=== PATIENT | male | born 1960 | race Caucasian/White ===

== ENCOUNTER 2017-02-27 19:12 | Inpatient (IN) | payer SELFPAY ==
[2017-02-27 18:30] VITALS: BP 129/67; PULSE 82; RESP 18; TEMP 97.7; O2SAT 97
[2017-02-27] MEDS ORDERED: ALUMINUM/MAGNESIUM/SIMETH 30 ML CUP PO PRN (19:30)
[2017-02-27] MEDS ORDERED: ACETAMINOPHEN 325 MG TAB PO PRN (19:30)
[2017-02-27] MEDS ORDERED: hydrOXYzine HCL 50 MG TAB PO PRN (19:30)
[2017-02-27] MEDS ORDERED: BENZTROPINE MESYLATE 1 MG TAB PO PRN (19:30)
[2017-02-27] MEDS ORDERED: MAGNESIUM HYDROXIDE SUSP 30 ML CUP PO PRN (19:30)
[2017-02-27] MEDS ORDERED: diphenhydrAMINE HCL 50 MG CAP - HS PRN PO (19:30)
[2017-02-27] MEDS ORDERED: BENZTROPINE MESYLATE 2 MG/2 ML VIAL IM PRN (19:30)
[2017-02-27] MEDS: REMOVE OLD NICOTINE PATCH T-DERMAL SCH (21:00)
[2017-02-28 05:06] VITALS: BP 106/57; PULSE 63; RESP 18; TEMP 98.1; O2SAT 100
[2017-02-28 08:59] LABS: ANION GAP 5 MEQ/L (5-15); BICARBONATE 31.1 MEQ/L (21.0-32.0); BLOOD UREA NITROGEN 14 MG/DL (7-18); CHLORIDE 103 MEQ/L (98-107); GLOMERULAR FILTRATION RATE 94 ML/MIN (>89); HDL CHOLESTEROL 81.5 MG/DL (40.0-60.0); LDL CHOLESTEROL 77 MG/DL (0-99); POTASSIUM 4.4 MEQ/L (3.5-5.1); SODIUM (NA) 139 MEQ/L (136-145)
[2017-02-28] MEDS: NICOTINE 21 MG/24 HR PATCH T-DERMAL SCH (09:00)
--- NOTE | 2017-02-28 14:33 | HHI.HP ---
Provisional Diagnosis Admission Date Feb 27, 2017 at 19:12 [place]. Adjustment disorder with mixed disturbance of emotions and conduct. Certification of Person's Competence To Provide Express and Informed Consent I have personally examined Dariusz Vazquez , a person being served at [facility] on, Feb 28, 2017 14:27. Express and informed consent means consent voluntarily given in writing, by a competent person, after sufficient explanation and disclosure of the subject matter involved to enable the person to make a knowing and willful decision without any element of force, fraud, deceit, duress, or other form of constraint or coercion. This person is 18 years of age or older, is not now known to be incompetent to consent to treatment with a guardian advocate, and does not have a health care surrogate or proxy currently making medical treatment decisions. I have found this person to be one of the following: [X] Competent to provide express and informed consent, as defined above, for voluntary admission to this facility and is competent to provide express and informed consent for treatment. He/she has the consistent capacity to make well reasoned, willful, and knowing decisions concerning his or her medical or mental health treatment. The person fully and consistently understands the purpose of the admission for examination/placement and is fully capable of personally exercising all rights [place] Incompetent to provide express and informed consent to voluntary admission, and this is incompetent to provide express and informed consent to treatment. The person must be transferred to involuntary status and a petition for a guardian advocate filed with the Circuit Court. [] Refusing to provide express and informed consent to voluntary admission but is competent to provide express and informed consent for treatment. The person must be discharged or transferred to involuntary status. Form shall be completed within 24 hours of a person's arrival at the receiving facility and filed in the clinical record of each person: 1. Admitted on a voluntary basis 2. Permitted to provide express and informed consent to his/her own treatment 3. Allowed to transfer from involuntary to voluntary status 4. Prior to permitting a person to consent to his or her own treatment after having been previously found incompetent to consent to treatment. History of Present Illness Capacity: Has Capacity HPI Patient has a several month history of depression. This includes depressed mood , anhedonia, diminished energy, insomnia, diminished self-esteem, distractibility and even vague suicidal ideation. He has stopped drinking alcohol and been detoxed in the past days and feels more depressed at this time yet does not wish to consume alcohol. He is also in the midst of a divorce from his and this is a marked stressor in his life. At this time he would like help with his depression and his anxiety. He has been nonfunctional at work and would like to be able to function in that capacity. Review of Systems ROS Limitations: Clinical Condition Past Psych History Psychological trauma history Denied Violence risk - others (6 mos) Minimal Violence risk - self (6 mos) Moderate Substance Abuse History Drugs/Alcohol past 12 months History of alcohol abuse in the last 12 months. Past Family Social History Current Medications Medications (Trade) Dose Ordered Sig/Darryl Route Start Time Stop Time Status Last Admin (Atarax) 50 mg Q6H PRN PO 02/27/17 19:30 (Cogentin) 1 mg Q12H PRN PO 02/27/17 19:30 (Cogentin Inj) 1 mg Q12H PRN IM 02/27/17 19:30 (Benadryl) 50 mg HS PRN PO 02/27/17 19:30 (Tylenol) 650 mg Q4H PRN PO 02/27/17 19:30 (Milk Of Magnesia Liq) 30 ml DAILY PRN PO 02/27/17 19:30 (Mag-Al Plus Susp Liq) 30 ml Q6H PRN PO 02/27/17 19:30 (Habitrol 21 Mg Patch.24 Hr) 1 patch DAILY T-DERMAL 02/28/17 09:00 Miscellaneous Information 1 HS T-DERMAL 02/27/17 21:00 Family History Positive for mood disorder Social History Does have the support of his mother and sister and other siblings. Does construction work at least intermittently. Becoming from his second . Patient's Strengths (min. 2) Verbal and resilient. Physical Exam GENERAL: SKIN: Warm and dry. HEAD: Normocephalic. EYES: No scleral icterus. No injection or drainage. NECK: Supple, trachea midline. No JVD or lymphadenopathy. CARDIOVASCULAR: Regular rate and rhythm without murmurs, gallops, or rubs. RESPIRATORY: Breath sounds equal bilaterally. No accessory muscle use. GASTROINTESTINAL: Abdomen soft, non-tender, nondistended. MUSCULOSKELETAL: No cyanosis, or edema. BACK: Nontender without obvious deformity. No CVA tenderness. Vital Signs Vital Signs Date Time Temp Pulse Resp B/P Pulse Ox O2 Delivery O2 Flow Rate FiO2 02/28/17 05:06 98.1 63 18 106/57 100 Mental Status Examination Speech: Unremarkable Orientation: x3 Memory: Unremarkable Thought Process: Organized, Goal Directed Thought Content: Unremarkable Hallucination Type: None Attention and Concentration: Good Suicidal Ideation: Yes Previous Suicide Attempts: No Homicidal Ideation: No Previous Homicide Attempts: No Insight: Fair Judgment: Unrealistic Affect: Anxious, Sad Mood: Sad, Anxious Motor Activity: Normal gait Assessment & Plan Problem List: (1) Adjustment disorder with mixed disturbance of emotions and conduct ICD Code: F43.25 Assessment & Plan Estimated LOS: 3 days this physician plans to place the patient on half doses of Prozac and Wellbutrin. This should address his depressive symptoms and any future cravings he might have. He will be engaged in individual and group therapies. We will obtain a comprehensive metabolic profile and EKG to ensure that his antidepressant medicines do not interfere with his cholesterol as he gets older or his heart function as he gets older. We will also test his thyroid function to be sure it is not contributing to his depression and his liver function due to his history of alcohol abuse. These issues may adversely affect his mood presently and in the future. Fredi Garza MD Feb 28, 2017 14:33
[2017-02-28 14:44] LABS: HEMOGLOBIN A1a 1.4 %; HEMOGLOBIN Ao 87.5 %; HEMOGLOBIN LA1C 1.8 %; HEMOGLOBIN P3 3.1 %
[2017-02-28] MEDS: FLUoxetine HCL 10 MG CAP PO SCH (16:18)
[2017-02-28 18:49] VITALS: BP 119/73; PULSE 72; RESP 18; TEMP 98.5; O2SAT 100
[2017-02-28 19:00] VITALS: BP 119/73; PULSE 72; RESP 18; TEMP 98.5; O2SAT 100
[2017-02-28] MEDS: REMOVE OLD NICOTINE PATCH T-DERMAL SCH (21:00)
[2017-03-01 05:35] VITALS: BP 115/61; PULSE 76; RESP 18; TEMP 97.6; O2SAT 99
[2017-03-01] MEDS: NICOTINE 21 MG/24 HR PATCH T-DERMAL SCH (09:00)
[2017-03-01] MEDS: buPROPion HCL 150 MG SUSTAINED RELEASE TAB PO SCH (09:19)
[2017-03-01] MEDS: FLUoxetine HCL 10 MG CAP PO SCH (09:19)
[2017-03-01 14:00] VITALS: BP 119/71; PULSE 66; RESP 19; O2SAT 100
--- NOTE | 2017-03-01 17:06 | HHI.PYPN ---
Subjective Remarks Pt seen and discussed with staff. Pt reports that he is tolerating medications without side effects. He reports that he contacted AA sponsor. He reports depression persists but he is feeling more hopeful. He denies SI/HI. Objective Alert: Yes [place]: Person, Place, Date, Situation Mood: Depressed Affect: Restricted Memory Intact: Immediate, Recent, Remote Hallucinations: Other (none) Delusions: No Delusion Type: Other (none) Suicidal: Ideation (denies) Homicidal: Ideation (denies) Insight/Judgment poor Vitals/IOs Vital Signs Date Time Temp Pulse Resp B/P Pulse Ox O2 Delivery O2 Flow Rate FiO2 03/01/17 05:35 97.6 76 18 115/61 99 Assessment & Plan Problem List: (1) Adjustment disorder with mixed disturbance of emotions and conduct ICD Code: F43.25 Assessment & Plan Continue current tx plan. Check TSH. Estimated LOS: days Justification for Cont. Inpt. monitoring for safety Alana Tinoco MD Mar 01, 2017 17:06
[2017-03-01] MEDS: REMOVE OLD NICOTINE PATCH T-DERMAL SCH (21:00)
[2017-03-02 06:37] VITALS: BP 121/79; PULSE 82; RESP 16; TEMP 98; O2SAT 100
[2017-03-02] MEDS: buPROPion HCL 150 MG SUSTAINED RELEASE TAB PO SCH (08:28)
[2017-03-02] MEDS: FLUoxetine HCL 10 MG CAP PO SCH (08:28)
[2017-03-02] MEDS: NICOTINE 21 MG/24 HR PATCH T-DERMAL SCH (08:31)
[2017-03-02] MEDS: REMOVE OLD NICOTINE PATCH T-DERMAL SCH (08:32)
--- NOTE | 2017-03-02 14:42 | HHI.PYPN ---
Subjective Remarks Pt seen and discussed with staff. He reports that his mood is good and he denies SI/HI today. He is tolerating medications without side effects. He states that he is focusing on maintaining sobriety and has talked to sponsor again. He has been participating in milieu activities. Objective Alert: Yes [place]: Person, Place, Date, Situation Mood: Calm Affect: Restricted Memory Intact: Immediate, Recent, Remote Hallucinations: Other (none) Delusions: No Delusion Type: Other (none) Suicidal: Ideation (denies) Homicidal: Ideation (denies) Insight/Judgment poor Vitals/IOs Vital Signs Date Time Temp Pulse Resp B/P Pulse Ox O2 Delivery O2 Flow Rate FiO2 03/02/17 06:37 98.0 82 16 121/79 100 Intake and Output 03/01/17 03/01/17 03/02/17 08:00 16:00 00:00 Intake Total 360 ml 360 ml Balance 360 ml 360 ml Assessment & Plan Problem List: (1) Adjustment disorder with mixed disturbance of emotions and conduct ICD Code: F43.25 Assessment & Plan continue current tx plan. Estimated LOS: days Justification for Cont. Inpt. risk of decompensation Alana Tinoco MD Mar 02, 2017 14:42
[2017-03-02 18:00] VITALS: BP 119/56; PULSE 83; RESP 17; TEMP 98.7; O2SAT 98
[2017-03-03 06:40] VITALS: BP 106/63; PULSE 66; RESP 16; TEMP 98; O2SAT 100
[2017-03-03] MEDS: FLUoxetine HCL 10 MG CAP PO SCH (08:31)
[2017-03-03] MEDS: buPROPion HCL 150 MG SUSTAINED RELEASE TAB PO SCH (08:31)
[2017-03-03] MEDS: NICOTINE 21 MG/24 HR PATCH T-DERMAL SCH (09:00)
--- NOTE | 2017-03-03 14:51 | HHI.DS ---
Psychiatry Discharge Summary Inpatient Psychiatric care?: Yes Advance Directive: No Reason Not Provided: Pt not interested Mental Health AdvanceDirective: No Health Care Proxy: No Admission Admission Date Feb 27, 2017 at 19:12 Admission Diagnosis: (1) Adjustment disorder with mixed disturbance of emotions and conduct ICD Code: F43.25 Brief History Patient has a several month history of depression. This includes depressed mood , anhedonia, diminished energy, insomnia, diminished self-esteem, distractibility and even vague suicidal ideation. He has stopped drinking alcohol and been detoxed in the past days and feels more depressed at this time yet does not wish to consume alcohol. He is also in the midst of a divorce from his and this is a marked stressor in his life. At this time he would like help with his depression and his anxiety. He has been nonfunctional at work and would like to be able to function in that capacity. Tobacco Use In Past 30 Days: No Tobacco Past 30 Days Alcohol Use: 4 or More Times Per Week Hospital Course Patient did well during this hospital course. He participated in individual and group therapies. He was started on antidepressant medication and did well. No procedures were performed. Results Blood Pressure 106 / 63 Vital Signs Date Time Temp Pulse Resp B/P Pulse Ox O2 Delivery O2 Flow Rate FiO2 03/03/17 06:40 98.0 66 16 106/63 100 Laboratory Results Test 02/28/17 07:36 Hemoglobin A1c 4.7 % (4.3-6.0) Triglycerides Level 56 MG/DL (42-150) Cholesterol Level 170 MG/DL (120-200) LDL Cholesterol 77 MG/DL (0-99) HDL Cholesterol 81.5 MG/DL (40.0-60.0) Summary of Procedures None Pending results at discharge: No Medications # of Antipsychotic meds at D/C: 0 Approp Antipsych med options 1 - Minimum of three failed multiple trials of monotherapy. 2 - Documented plan to taper to monotherapy due to previous use of multiple meds OR cross-taper in progress at D/C. 3 - Documentation of augmentation of Clozapine. 4 - Justification other than those listed in allowable values 1-3, document here : Discharge Discharge Date: March 03, 2017 Discharge Diagnosis: (1) Adjustment disorder with mixed disturbance of emotions and conduct Diagnosis: Principal ICD Code: F43.25 Mental Status Exam at Disch At the time of discharge the patient demonstrated no suicidal or homicidal ideation, plan or intent. Cognition was intact. He was calm and pleasant and cooperative. He verbally contracted for safety. No psychotic symptoms were present. Pt Condition on Discharge: Stable Discharge Disposition: Discharge Home Discharge Instructions Diet Instructions: As Tolerated, No Restrictions Activities you can perform: Regular-No Restrictions Discharge Time <= 30 minutes Discharge/Advance Care Plan Health Problems: (1) Adjustment disorder with mixed disturbance of emotions and conduct Goals to promote your health * To prevent worsening of your condition and complications * To maintain your health at the optimal level Directions to meet your goals Take your medications as prescribed Follow your dietary instruction Follow activity as directed Keep your appointments as scheduled Take your immunizations and boosters as scheduled If your symptoms worsen call your PCP, if no PCP go to Urgent Care Center or Emergency Room For 26/05 questions related to your inpatient stay or results of tests pending at discharge, please contact Dr. Fredi Garza at Smoking is Dangerous to Your Health. Avoid second hand smoking Fredi Garza MD March 03, 2017 14:51
[2017-03-03] MEDS ORDERED: BUPR150CR PO (14:52)
[2017-03-03] MEDS ORDERED: FLUO-1 PO (14:52)
== END 2017-03-03 20:00 | disposition home or self-care (01) | DRG 882 ==
LOC: H260 19:12
PROVIDERS: ADMIT Psychiatry & Neurology Psychiatry; ATTEND Psychiatry & Neurology Psychiatry
DX: F43.25 Adjustment disorder with mixed disturbance of emotions and conduct (principal); R45.851 Suicidal ideations; F32.9 Major depressive disorder, single episode, unspecified; G47.00 Insomnia, unspecified; F41.9 Anxiety disorder, unspecified; Z81.8 Family history of other mental and behavioral disorders
CPT/HCPCS: 80048; 80061; 83036; 84443; Q0163